=== PATIENT | male | born 1970 | race Caucasian/White ===

== ENCOUNTER 2020-03-13 17:45 | Inpatient (IN) ==
[2020-03-13] MEDS ORDERED: ONDANSETRON INJ 2 MG/ML 2 ML VIAL IV STA (18:34)
--- NOTE | 2020-03-13 18:39 | Emergency Department Note ---
History of Present Illness General Chief complaint: Syncope Stated complaint: SYNCOPE Time Seen by Provider: 03/13/20 18:25 Source: patient History of Present Illness Provider complaint: Syncope Onset (ago): minute(s) Location: head Severity: moderate Pain Consistency: + now resolved Maximum Pain Intensity: 0 Quality: + other (Loss of consciousness) Exacerbated By: + none Associated symptoms: + syncope; no chest pain, no cough, no fever/chills, no headaches, no nausea/vomiting and no shortness of breath This is a 50-year-old male who presents with a syncopal episode. Earlier this afternoon he had a prostate biopsy with local anesthesia. He did not receive any medication otherwise. His was driving him home when he started to feel some pressure in his bladder and nauseated. He then passed out for approximately 4 minutes. No report of seizure-like activity or cyanosis. When he woke up he was extremely sweaty and nauseated. He did not vomit. He denies having any chest discomfort or pain, fever, cough or cold symptoms, abdominal pain, leg swelling or pain, palpitations, diarrhea, black or bloody stools. He has nausea and a little bit of discomfort where he had the biopsy but otherwise feels well at this time. He has never passed out before. He states that the paramedics noted that his heart rate was in the 40s and he was given medication for this. He was given atropine 0.5 mg per the nursing note. Home Medications Medication Instructions Recorded Confirmed Type alfuzosin 10 mg PO HS 03/13/20 03/13/20 History ciprofloxacin HCl [Cipro] 500 mg PO Q12 03/13/20 03/13/20 History omeprazole 20 mg PO DAILY 03/13/20 03/13/20 History Allergies Allergy/AdvReac Type Severity Reaction Status Date / Time No Known Allergies Allergy Unverified 03/13/20 19:51 Past Med/Surg History Medical History No pertinent past medical history Social History Smoking Status: Never smoker Preferred Language: Ecuadorean Feels Safe at Home: Yes Review of Systems See HPI for pertinent positives & negatives. and A total of 10 systems reviewed and were otherwise negative Physical Exam Vital Signs Vital Signs - 24 hr 03/13/20 17:45 03/13/20 19:26 03/13/20 20:23 Temperature 36.5 C Temperature Source Oral Pulse Rate - Lying 55 L Pulse Rate - Sitting 58 L Pulse Rate - Standing 62 Pulse Rate 56 L Pulse Rate [Apical] Pulse Rhythm Regular Pulse Rhythm [Apical] Pulse Strength Normal Respiratory Rate 20 Respiratory Effort / Characteristics Non-Labored Spontaneous Respiratory Depth Normal Respiratory Pattern Regular Blood Pressure - Lying 122/79 Blood Pressure - Sitting 124/75 Blood Pressure- Standing 128/72 Blood Pressure 115/63 Blood Pressure [Right Arm] Blood Pressure Mean 80 Blood Pressure Mean [Right Arm] Blood Pressure Position Lying Pulse Oximetry 99 95 Oxygen Delivery Method Room Air Room Air Sepsis Recent Fever Within 48 Hours No Sepsis New/Unexplained Change in Mental Status N/A Sepsis Action Taken by Nursing No Action Required 03/13/20 20:37 03/13/20 21:46 03/13/20 21:54 Temperature Temperature Source Pulse Rate - Lying Pulse Rate - Sitting Pulse Rate - Standing Pulse Rate 52 L Pulse Rate [Apical] 51 L 52 L Pulse Rhythm Pulse Rhythm [Apical] Regular Regular Pulse Strength Respiratory Rate 14 16 14 Respiratory Effort / Characteristics Non-Labored Spontaneous Non-Labored Spontaneous Respiratory Depth Normal Normal Respiratory Pattern Blood Pressure - Lying Blood Pressure - Sitting Blood Pressure- Standing Blood Pressure Blood Pressure [Right Arm] 123/73 122/77 Blood Pressure Mean Blood Pressure Mean [Right Arm] 89 92 Blood Pressure Position Pulse Oximetry 98 98 Oxygen Delivery Method Room Air Room Air Sepsis Recent Fever Within 48 Hours Sepsis New/Unexplained Change in Mental Status Sepsis Action Taken by Nursing Constitutional: Vital signs reviewed. Eyes: Pupils are equal round reactive to light. Conjunctiva are noninjected. ENT: Pharynx is clear without erythema or exudate. Mucous membranes are moist. Neck supple without meningeal signs. Respiratory: Clear to auscultation bilaterally. Breath sounds are equal bilaterally. Cardiovascular: Regular rate and rhythm. No rubs or gallops. GI: Soft, nondistended and nontender. Bowel sounds are present. Musculoskeletal: No peripheral edema. No lower extremity tenderness. Integumentary: No cyanosis. or jaundice. Neurologic: The patient is awake and alert. Cranial nerves II-XII are intact. Motor is 5 out of 5 all extremities. Sensation is intact to light touch all extremities. Normal speech. No pronator drift. No limb ataxia. Psychiatric: Normal affect. Not anxious appearing. Course Administered Medications Lactated Ringer's (Lr) 1,000 mls @ 200 mls/hr IV .Q5H ONE Stop: 03/14/20 01:14 Last Admin: 03/13/20 20:35 Dose: 200 mls/hr Documented by: [id number] Discontinued Medications Ciprofloxacin (Ciprofloxacin 500 Mg Tab) 500 mg PO NOW STA Stop: 03/13/20 21:05 Last Admin: 03/13/20 21:15 Dose: 500 mg Documented by: [id number] Ondansetron HCl (Ondansetron Inj 2 Mg/Ml 2 Ml Vial) 4 mg IV NOW STA Stop: 03/13/20 18:35 Last Admin: 03/13/20 19:25 Dose: 4 mg Documented by: [id number] Medical Decision Making Differential Diagnosis Syncope, bradycardia, dysrhythmia, vasovagal syncope, anemia Medical Records Attestation: I reviewed the patient's medical records. I did perform a limited focused review of portions of the patient's old chart on the electronic medical record. The patient has had no prior visits to this hospital. Home Medications Current Medication List: was personally reviewed by me Laboratory Data Attestation: I reviewed the patient's lab results. Result diagrams: 03/13/20 17:40 03/13/20 17:40 Lab Results 03/13/20 03/13/20 03/13/20 Range/Units 17:40 17:40 17:40 WBC 10.90 H (4.8-10.8) K/uL RBC 5.00 (4.7-6.1) M/uL Hgb 15.5 (14.0-18.0) g/dL Hct 46.5 (42-52) % MCV 93.0 (80-100) fL MCH 31.0 (25-34) pg MCHC 33.3 (32-36) g/dL RDW Std Deviation 43.2 (36.4-46.3) fL RDW Coeff of Barak 12.7 (11.5-14.5) % Plt Count 205 (130-400) K/uL MPV 12.1 H (7.4-10.4) fL Immature Gran % (Auto) 0.2 % Neut % (Auto) 71.3 % Lymph % (Auto) 22.0 % [place] % (Auto) 5.6 % Eos % (Auto) 0.6 % Baso % (Auto) 0.3 % Neut # (Auto) 7.78 H (1.4-6.5) K/uL Lymph # (Auto) 2.40 (1.2-3.4) K/uL [place] # (Auto) 0.61 H (0.11-0.59) K/uL Eos # (Auto) 0.06 (0-0.5) K/uL Baso # (Auto) 0.03 (0-0.2) K/uL Immature Gran # (Auto) 0.02 (0.00-0.02) K/uL Sodium 138 (136-145) mmol/L Potassium 3.9 (3.5-5.1) mmol/L Chloride 104 (98-107) mmol/L Carbon Dioxide 29 (21-32) mmol/L Anion Gap 5.0 (3-11) BUN 18 (7-18) mg/dl Creatinine 1.25 (0.6-1.4) mg/dl Est Cr Clr Drug Dosing 82.7 ml/min Est GFR ( Amer) 76.2 Est GFR (Non-Af Amer) 65.8 BUN/Creatinine Ratio 14.5 (10-20) Glucose 131 H (70-99) mg/dl Calcium 9.1 (8.5-10.1) mg/dl Magnesium 2.3 (1.8-2.4) mg/dl Total Bilirubin 0.6 (0.2-1) mg/dl AST 18 (15-37) U/L ALT 25 (12-78) U/L Alkaline Phosphatase 58 (45-117) U/L Troponin I < 0.015 (0-0.045) ng/ml Total Protein 7.9 (6.4-8.2) gm/dl Albumin 4.3 (3.4-5.0) gm/dl Globulin 3.6 (2.5-4.0) gm/dl Albumin/Globulin Ratio 1.2 (0.9-2) TSH 3.070 (0.300-4.500) uIu/ml Lyme Disease IgG Ab Negative (Negative) Lyme Disease IgM Ab Positive A (Negative) SARS-CoV-2 Ag (Rapid) (Negative) 03/13/20 Range/Units 20:37 WBC (4.8-10.8) K/uL RBC (4.7-6.1) M/uL Hgb (14.0-18.0) g/dL Hct (42-52) % MCV (80-100) fL MCH (25-34) pg MCHC (32-36) g/dL RDW Std Deviation (36.4-46.3) fL RDW Coeff of Barak (11.5-14.5) % Plt Count (130-400) K/uL MPV (7.4-10.4) fL Immature Gran % (Auto) % Neut % (Auto) % Lymph % (Auto) % [place] % (Auto) % Eos % (Auto) % Baso % (Auto) % Neut # (Auto) (1.4-6.5) K/uL Lymph # (Auto) (1.2-3.4) K/uL [place] # (Auto) (0.11-0.59) K/uL Eos # (Auto) (0-0.5) K/uL Baso # (Auto) (0-0.2) K/uL Immature Gran # (Auto) (0.00-0.02) K/uL Sodium (136-145) mmol/L Potassium (3.5-5.1) mmol/L Chloride (98-107) mmol/L Carbon Dioxide (21-32) mmol/L Anion Gap (3-11) BUN (7-18) mg/dl Creatinine (0.6-1.4) mg/dl Est Cr Clr Drug Dosing ml/min Est GFR ( Amer) Est GFR (Non-Af Amer) BUN/Creatinine Ratio (10-20) Glucose (70-99) mg/dl Calcium (8.5-10.1) mg/dl Magnesium (1.8-2.4) mg/dl Total Bilirubin (0.2-1) mg/dl AST (15-37) U/L ALT (12-78) U/L Alkaline Phosphatase (45-117) U/L Troponin I (0-0.045) ng/ml Total Protein (6.4-8.2) gm/dl Albumin (3.4-5.0) gm/dl Globulin (2.5-4.0) gm/dl Albumin/Globulin Ratio (0.9-2) TSH (0.300-4.500) uIu/ml Lyme Disease IgG Ab (Negative) Lyme Disease IgM Ab (Negative) SARS-CoV-2 Ag (Rapid) Negative (Negative) Imaging Data Radiologist's Impression: XR chest 1V portable HISTORY: syncope COMPARISON: None. FINDINGS: Cardiac silhouette is borderline enlarged. The lungs are clear. No pleural effusions. No pneumothorax. Old posttraumatic changes within the distal left clavicle. IMPRESSION: Borderline cardiomegaly. Otherwise, no acute process within the chest. ACT 112: Negative or not required by law. Electronically signed by: Nguyễn Hollingsworth M.D. 03/13/2020 7:36 PM ECG Data Attestation: I personally reviewed and interpreted this ECG as follows: Indication: + syncope Rate (beats per minute): 48 Rhythm: + sinus bradycardia ECG ST segments: + ST elevation (Anterior laterally resembling early repolarization) ECG Findings: + Peaked T waves; no PVCs MDM Narrative I did evaluate the patient as noted above. The patient is presenting with a syncopal episode. His reported that it was 4 minutes. EMS reported bradycardia in the 40s and gave him atropine IV. Currently he is nauseated but has no other symptoms. I did place an order for continuous cardiac monitoring. The monitor showed normal sinus rhythm at a rate of 60 bpm. He was given Zofran IV. I did order and personally review the patient's 12-lead EKG as described above. He has what appears to be early repolarization in the anterior lateral leads with peak T waves as well. There is no old EKG to compare this was on the [employer] system or on the [employer] system. He denies having any chest discomfort or pain or shortness of breath. I did order and personally reviewed the images of the patient's chest x-ray as described above. Chest x-ray is unremarkable. I did order and review the patient's blood work as noted in the electronic medical record. His white blood cell count is slightly elevated which is a nonspecific finding. He is not anemic. His troponin is negative. TSH and electrolytes and LFTs are all within normal limits. I did discuss the test results with the jagdish duron. He remains bradycardic in the 50s here. I did recommend hospitalization for further care and evaluation. I did discuss the case with hospitalist and behavioral health case manager. Impression & Plan Syncope, Bradycardia, Abnormal ECG Discharge Plan Visit Data Chief Complaint: Syncope Stated Complaint: SYNCOPE ED Provider: [facility] Discharge Problem: Syncope, Bradycardia, Abnormal ECG Patient Disposition: Being Evaluated by Hospitalist Discharge Instructions Interventions: ED Discharge Assessment Last Done: 03/13/20 21:54 Forms Stand Alone Forms: [facility] Prescriptions Prescriptions: No Action ciprofloxacin HCl [Cipro] 500 mg tablet 500 mg PO Q12 RF: 0 omeprazole 20 mg capsule,delayed release(DR/EC) 20 mg PO DAILY RF: 0 alfuzosin 10 mg Tablet Extended Release 24 Hr 10 mg PO HS RF: 0 Referrals Referrals: Chano Boudreaux MD [Primary Care Provider] - Discharge Problem: Syncope Qualifiers: Syncope type: unspecified Qualified Code(s): R55 - Syncope and collapse
[2020-03-13 18:43] LABS: Basophils # (auto) 0.03 K/uL (0-0.2); Basophils % (auto) 0.3 %; Eosinophils # (auto) 0.06 K/uL (0-0.5); Eosinophils % (auto) 0.6 %; Hematocrit (blood only) 46.5 % (42-52); Hemoglobin 15.5 g/dL (14.0-18.0); Immature Granulocytes # (auto) 0.02 K/uL (0.00-0.02); Immature Granulocytes % (auto) 0.2 %; Mean Corpuscular Hgb Conc 33.3 g/dL (32-36); Mean Platelet Volume 12.1 fL (7.4-10.4); Monocytes # (auto) 0.61 K/uL (0.11-0.59); Monocytes % (auto) 5.6 %; Neutrophils # (auto) 7.78 K/uL (1.4-6.5); Neutrophils % (auto) 71.3 %; Platelet Count 205 K/uL (130-400); RDW Coefficient of Variation 12.7 % (11.5-14.5); RDW Standard Deviation 43.2 fL (36.4-46.3)
[2020-03-13 18:52] LABS: Alanine Aminotransferase 25 U/L (12-78); Albumin Level 4.3 gm/dl (3.4-5.0); Aspartate Aminotransferase 18 U/L (15-37); BUN Creatinine Ratio 14.5 (10-20); Blood Urea Nitrogen 18 mg/dl (7-18); Calcium 9.1 mg/dl (8.5-10.1); Carbon Dioxide 29 mmol/L (21-32); Chloride 104 mmol/L (98-107); Creatinine Clr Calc Pharmacy 82.7 ml/min; Est GFR (African American) 76.2; Est GFR (Non-African American) 65.8; Glucose 131 mg/dl (70-99); Magnesium 2.3 mg/dl (1.8-2.4); Potassium 3.9 mmol/L (3.5-5.1); Sodium 138 mmol/L (136-145)
[2020-03-13 19:03] LABS: Albumin Globulin Ratio 1.2 (0.9-2); Alkaline Phosphatase 58 U/L (45-117); Bilirubin,Total 0.6 mg/dl (0.2-1); Globulin 3.6 gm/dl (2.5-4.0); Total Protein 7.9 gm/dl (6.4-8.2); Troponin I < 0.015 ng/ml (0-0.045)
--- NOTE | 2020-03-13 19:37 | XRay Report ---
XR chest 1V portable HISTORY: syncope COMPARISON: None. FINDINGS: Cardiac silhouette is borderline enlarged. The lungs are clear. No pleural effusions. No pn eumothorax. Old posttraumatic changes within the distal left clavicle. IMPRESSION: Borderline cardiomegaly. Otherwise, no acute process within the chest. ACT 112: Negative or not required by law. Electronically signed by: Nguyễn Hollingsworth M.D. 03/13/2020 7:36 PM
[2020-03-13] MEDS ORDERED: LACTATED RINGER'S 1,000 ML IV ONE (20:15)
--- NOTE | 2020-03-13 21:01 | History & Physical Report ---
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 Hyperglycemia rule out DM PCU IV Ceftriaxone [facility] ID consult in a.m. RE Lyme carditis TTE RE syncope Atropine as needed symptomatic bradycardia Check hemoglobin A1c DVT prophylaxis. SCDs Full code Text document was generated using [employer] voice recognition software. It may contain grammatical or spelling errors. Kindly contact undersigned for clarification of any documentation item in question. History of Present Illness Chief Complaint: Syncope, bradycardia Primary Care Provider: Chano Boudreaux MD History obtained from patient and records. Medical history significant for GERD, prostate enlargement as per records. Last week, patient noted a tick attached to his right posterior leg while showering. No fever, no chills, no chest pain, no shortness of breath, no headache over the weekend. Patient underwent outpatient transrectal ultrasound and prostate biopsy at [facility] this afternoon for history of elevated PSA and urinary retention. Prostate noted to be enlarged on TRUS. Subsequent prostatic needle biopsy done. Post procedure patient prescribed alpha-margaux trial by urologist. He was also instructed to complete 3-day periprocedural Cipro course. Patient noted worsening bladder pressure and nausea symptoms inside moving vehicle being driven by patient's on the way home to [place] from [facility]. Syncopal event lasting about 4 minutes as per 's account. No witnessed seizures. No chest pain, no S OB, no headache symptoms as per patient. When he woke up patient felt very nauseous, lightheaded, and very sweaty. Upon EMS arrival, patient heart rate noted to be 40s. IV atropine given by EMS. Patient started feeling better. Patient brought to the ER for evaluation. 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 Allergies Allergy/AdvReac Type Severity Reaction Status Date / Time No Known Allergies Allergy Unverified 03/13/20 19:51 Home Medications Medication Instructions Recorded Confirmed Type alfuzosin 10 mg PO HS 03/13/20 03/13/20 History ciprofloxacin HCl [Cipro] 500 mg PO Q12 03/13/20 03/13/20 History omeprazole 20 mg PO DAILY 03/13/20 03/13/20 History Past Med/Surg History Medical History No pertinent past medical history Social History Smoking Status: Unknown if ever smoked Hx Alcohol Use: No Hx Substance Use: No Preferred Language: Moroccan Communication Ability: Effective Service Observer Required: No Beliefs That Will Affect Care: None Current Living Situation: Spouse Other Information That Helps Us Care for You: No Feels Safe at Home: Yes Safety Concerns: Feels Safe At This Time Assistive Devices: None Review of Systems Review of Systems: As per HPI, all 10 systems reviewed, all other ROS negative Physical Exam Physical Exam: GENERAL: Comfortable, pleasant, no respiratory distress SKIN: Normal color, warm HEENT: [place] palpebral conjunctivae, no ptosis, dry buccal mucosa NECK : Supple, no tenderness CHEST : CTA, no tenderness HEART : Bradycardic, no obvious murmurs ABDOMEN: Some distention, nontender EXTREMITIES : papule, R superior calf, no tenderness, no other conspicuous deformities noted NEUROLOGIC : Coherent, no facial asymmetry, no other gross focality Results & Data Results & Data ([facility]) Vital Signs (Past 12 Hours) Vital Signs Temp Pulse Pulse Resp BP BP Pulse Ox 03/13/20 20:37 51 L 14 123/73 98 03/13/20 20:23 95 03/13/20 17:45 36.5 C 56 L 20 115/63 99 Laboratory Results Laboratory Results WBC 10.90 K/uL (4.8-10.8) H 03/13/20 17:40 RBC 5.00 M/uL (4.7-6.1) 03/13/20 17:40 Hgb 15.5 g/dL (14.0-18.0) 03/13/20 17:40 Hct 46.5 % (42-52) 03/13/20 17:40 MCV 93.0 fL (80-100) 03/13/20 17:40 MCH 31.0 pg (25-34) 03/13/20 17:40 MCHC 33.3 g/dL (32-36) 03/13/20 17:40 RDW Std Deviation 43.2 fL (36.4-46.3) 03/13/20 17:40 RDW Coeff of Barak 12.7 % (11.5-14.5) 03/13/20 17:40 Plt Count 205 K/uL (130-400) 03/13/20 17:40 MPV 12.1 fL (7.4-10.4) H 03/13/20 17:40 Immature Gran % (Auto) 0.2 % 03/13/20 17:40 Neut % (Auto) 71.3 % 03/13/20 17:40 Lymph % (Auto) 22.0 % 03/13/20 17:40 [place] % (Auto) 5.6 % 03/13/20 17:40 Eos % (Auto) 0.6 % 03/13/20 17:40 Baso % (Auto) 0.3 % 03/13/20 17:40 Neut # (Auto) 7.78 K/uL (1.4-6.5) H 03/13/20 17:40 Lymph # (Auto) 2.40 K/uL (1.2-3.4) 03/13/20 17:40 [place] # (Auto) 0.61 K/uL (0.11-0.59) H 03/13/20 17:40 Eos # (Auto) 0.06 K/uL (0-0.5) 03/13/20 17:40 Baso # (Auto) 0.03 K/uL (0-0.2) 03/13/20 17:40 Immature Gran # (Auto) 0.02 K/uL (0.00-0.02) 03/13/20 17:40 Sodium 138 mmol/L (136-145) 03/13/20 17:40 Potassium 3.9 mmol/L (3.5-5.1) 03/13/20 17:40 Chloride 104 mmol/L (98-107) 03/13/20 17:40 Carbon Dioxide 29 mmol/L (21-32) 03/13/20 17:40 Anion Gap 5.0 (3-11) 03/13/20 17:40 BUN 18 mg/dl (7-18) 03/13/20 17:40 Creatinine 1.25 mg/dl (0.6-1.4) 03/13/20 17:40 Est Cr Clr Drug Dosing 82.7 ml/min 03/13/20 17:40 Est GFR ( Amer) 76.2 03/13/20 17:40 Est GFR (Non-Af Amer) 65.8 03/13/20 17:40 BUN/Creatinine Ratio 14.5 (10-20) 03/13/20 17:40 Glucose 131 mg/dl (70-99) H 03/13/20 17:40 Calcium 9.1 mg/dl (8.5-10.1) 03/13/20 17:40 Magnesium 2.3 mg/dl (1.8-2.4) 03/13/20 17:40 Total Bilirubin 0.6 mg/dl (0.2-1) 03/13/20 17:40 AST 18 U/L (15-37) 03/13/20 17:40 ALT 25 U/L (12-78) 03/13/20 17:40 Alkaline Phosphatase 58 U/L (45-117) 03/13/20 17:40 Troponin I < 0.015 ng/ml (0-0.045) 03/13/20 17:40 Total Protein 7.9 gm/dl (6.4-8.2) 03/13/20 17:40 Albumin 4.3 gm/dl (3.4-5.0) 03/13/20 17:40 Globulin 3.6 gm/dl (2.5-4.0) 03/13/20 17:40 Albumin/Globulin Ratio 1.2 (0.9-2) 03/13/20 17:40 TSH 3.070 uIu/ml (0.300-4.500) 03/13/20 17:40 SARS-CoV-2 Ag (Rapid) Negative (Negative) 03/13/20 20:37 Lab Results 03/13/20 03/13/20 03/13/20 Range/Units 17:40 17:40 17:40 WBC 10.90 H (4.8-10.8) K/uL RBC 5.00 (4.7-6.1) M/uL Hgb 15.5 (14.0-18.0) g/dL Hct 46.5 (42-52) % MCV 93.0 (80-100) fL MCH 31.0 (25-34) pg MCHC 33.3 (32-36) g/dL RDW Std Deviation 43.2 (36.4-46.3) fL RDW Coeff of Barak 12.7 (11.5-14.5) % Plt Count 205 (130-400) K/uL MPV 12.1 H (7.4-10.4) fL Immature Gran % (Auto) 0.2 % Neut % (Auto) 71.3 % Lymph % (Auto) 22.0 % [place] % (Auto) 5.6 % Eos % (Auto) 0.6 % Baso % (Auto) 0.3 % Neut # (Auto) 7.78 H (1.4-6.5) K/uL Lymph # (Auto) 2.40 (1.2-3.4) K/uL [place] # (Auto) 0.61 H (0.11-0.59) K/uL Eos # (Auto) 0.06 (0-0.5) K/uL Baso # (Auto) 0.03 (0-0.2) K/uL Immature Gran # (Auto) 0.02 (0.00-0.02) K/uL Sodium 138 (136-145) mmol/L Potassium 3.9 (3.5-5.1) mmol/L Chloride 104 (98-107) mmol/L Carbon Dioxide 29 (21-32) mmol/L Anion Gap 5.0 (3-11) BUN 18 (7-18) mg/dl Creatinine 1.25 (0.6-1.4) mg/dl Est Cr Clr Drug Dosing 82.7 ml/min Est GFR ( Amer) 76.2 Est GFR (Non-Af Amer) 65.8 BUN/Creatinine Ratio 14.5 (10-20) Glucose 131 H (70-99) mg/dl Calcium 9.1 (8.5-10.1) mg/dl Magnesium 2.3 (1.8-2.4) mg/dl Total Bilirubin 0.6 (0.2-1) mg/dl AST 18 (15-37) U/L ALT 25 (12-78) U/L Alkaline Phosphatase 58 (45-117) U/L Troponin I < 0.015 (0-0.045) ng/ml Total Protein 7.9 (6.4-8.2) gm/dl Albumin 4.3 (3.4-5.0) gm/dl Globulin 3.6 (2.5-4.0) gm/dl Albumin/Globulin Ratio 1.2 (0.9-2) TSH 3.070 (0.300-4.500) uIu/ml Lyme Disease IgG Ab Negative (Negative) Lyme Disease IgM Ab Positive A (Negative) SARS-CoV-2 Ag (Rapid) (Negative) 03/13/20 Range/Units 20:37 WBC (4.8-10.8) K/uL RBC (4.7-6.1) M/uL Hgb (14.0-18.0) g/dL Hct (42-52) % MCV (80-100) fL MCH (25-34) pg MCHC (32-36) g/dL RDW Std Deviation (36.4-46.3) fL RDW Coeff of Barak (11.5-14.5) % Plt Count (130-400) K/uL MPV (7.4-10.4) fL Immature Gran % (Auto) % Neut % (Auto) % Lymph % (Auto) % [place] % (Auto) % Eos % (Auto) % Baso % (Auto) % Neut # (Auto) (1.4-6.5) K/uL Lymph # (Auto) (1.2-3.4) K/uL [place] # (Auto) (0.11-0.59) K/uL Eos # (Auto) (0-0.5) K/uL Baso # (Auto) (0-0.2) K/uL Immature Gran # (Auto) (0.00-0.02) K/uL Sodium (136-145) mmol/L Potassium (3.5-5.1) mmol/L Chloride (98-107) mmol/L Carbon Dioxide (21-32) mmol/L Anion Gap (3-11) BUN (7-18) mg/dl Creatinine (0.6-1.4) mg/dl Est Cr Clr Drug Dosing ml/min Est GFR ( Amer) Est GFR (Non-Af Amer) BUN/Creatinine Ratio (10-20) Glucose (70-99) mg/dl Calcium (8.5-10.1) mg/dl Magnesium (1.8-2.4) mg/dl Total Bilirubin (0.2-1) mg/dl AST (15-37) U/L ALT (12-78) U/L Alkaline Phosphatase (45-117) U/L Troponin I (0-0.045) ng/ml Total Protein (6.4-8.2) gm/dl Albumin (3.4-5.0) gm/dl Globulin (2.5-4.0) gm/dl Albumin/Globulin Ratio (0.9-2) TSH (0.300-4.500) uIu/ml Lyme Disease IgG Ab (Negative) Lyme Disease IgM Ab (Negative) SARS-CoV-2 Ag (Rapid) Negative (Negative) Diagnostic Findings Chest x-ray : Borderline cardiomegaly. Otherwise, no acute process within the chest. EKG as per my interpretation : Rate 50, sinus bradycardia, normal axis, early repolarization
[2020-03-13] MEDS ORDERED: CIPROFLOXACIN 500 MG TAB PO STA (21:04)
[2020-03-13 21:29] LABS: Lyme Ab IgG w/WB Rflx Negative (Negative)
[2020-03-13 21:32] LABS: Lyme Ab IgM w/WB Rflx Positive (Negative)
[2020-03-13] MEDS ORDERED: KETOROLAC TROMETHAMINE 15 MG/ML VIAL IV PRN (22:31)
[2020-03-13] MEDS ORDERED: IBUPROFEN 200 MG TAB PO PRN (22:31)
[2020-03-13] MEDS ORDERED: PROMETHAZINE HCL 12.5 MG in SODIUM CHLORIDE 0.9% 50 ML IV PRN (22:31)
[2020-03-13] MEDS ORDERED: ATROPINE SULFATE 0.1 MG/ML 5ML SYR IV PRN (22:31)
[2020-03-13] MEDS ORDERED: LORazepam 0.25 MG/0.5 ML VIAL IV PRN (22:31)
[2020-03-13] MEDS ORDERED: cefTRIAXone SODIUM 2,000 MG in DEXTROSE 5% 50 ML IV SCH (23:00)
[2020-03-14 04:56] LABS: Appearance Urine Clear (Clear); Bacteria Urine Automated Negative (Negative); Bilirubin Urine Negative (Negative); Blood Urine 3+ (Negative); Cast Urine Automated 0 /lpf (0-5); Color Urine Yellow; Epithelial Cell Urine Auto 0-5 /lpf (0-5); Glucose Urine UA Negative (Negative); Ketones Urine Negative (Negative); Leukocyte Esterase Urine Negative (Negative); Nitrite Urine Negative (Negative); Protein Urine Negative (Negative); RBC Urine Automated >30 /hpf (0-4); Specific Gravity Urine 1.014 (1.000-1.030); Urobilinogen Urine Negative (Negative)
[2020-03-14 06:13] LABS: Estimated Average Glucose 97 mg/dl
[2020-03-14] MEDS ORDERED: CIPROFLOXACIN 500 MG TAB PO SCH (09:00)
[2020-03-14] MEDS ORDERED: PANTOprazole 40 MG TAB PO SCH (09:00)
--- NOTE | 2020-03-14 09:57 | Electrocardiogram Report ---
Test Reason : Blood Pressure : / mmHG Vent. Rate : 048 BPM Atrial Rate : 048 BPM P-R Int : 164 ms QRS Dur : 092 ms QT Int : 438 ms P-R-T Axes : 043 049 027 degrees QTc Int : [address] elevation, consider early repolarization Borderline ECG No previous ECGs available Confirmed by Valerio Fischer [id number]) on 03/14/2020 9:57:17 AM Referred By: REFERRED SELF Confirmed By:Valerio Fischer
[2020-03-14 10:32] LABS: Basophils # (auto) 0.02 K/uL (0-0.2); Basophils % (auto) 0.3 %; Eosinophils # (auto) 0.03 K/uL (0-0.5); Eosinophils % (auto) 0.4 %; Hematocrit (blood only) 42.6 % (42-52); Hemoglobin 14.4 g/dL (14.0-18.0); Immature Granulocytes # (auto) 0.02 K/uL (0.00-0.02); Immature Granulocytes % (auto) 0.3 %; Lymphocytes # (auto) 1.58 K/uL (1.2-3.4); Lymphocytes % (auto) 20.6 %; Mean Corpuscular Hemoglobin 31.2 pg (25-34); Mean Corpuscular Hgb Conc 33.8 g/dL (32-36); Mean Corpuscular Volume 92.4 fL (80-100); Mean Platelet Volume 11.2 fL (7.4-10.4); Monocytes # (auto) 0.42 K/uL (0.11-0.59); Monocytes % (auto) 5.5 %; Neutrophils # (auto) 5.61 K/uL (1.4-6.5); Neutrophils % (auto) 72.9 %; Platelet Count 173 K/uL (130-400); RDW Coefficient of Variation 12.6 % (11.5-14.5); RDW Standard Deviation 42.7 fL (36.4-46.3); Red Blood Count 4.61 M/uL (4.7-6.1); White Blood Count 7.68 K/uL (4.8-10.8)
[2020-03-14 11:16] LABS: BUN Creatinine Ratio 13.7 (10-20); Blood Urea Nitrogen 14 mg/dl (7-18); C Reactive Protein < 0.29 mg/dl (0-0.29); Carbon Dioxide 27 mmol/L (21-32); Chloride 109 mmol/L (98-107); Creatinine Clr Calc Pharmacy 100.3 ml/min; Est GFR (African American) 97.5; Est GFR (Non-African American) 84.1; Glucose 100 mg/dl (70-99); Potassium 3.7 mmol/L (3.5-5.1); Sodium 140 mmol/L (136-145)
--- NOTE | 2020-03-14 13:03 | Electrocardiogram Report ---
Test Reason : Blood Pressure : / mmHG Vent. Rate : 058 BPM Atrial Rate : 058 BPM P-R Int : 174 ms QRS Dur : 080 ms QT Int : 412 ms P-R-T Axes : 053 046 028 degrees QTc Int : 404 ms Sinus bradycardia Early repolarization Otherwise normal ECG When compared with ECG of 13-MAR-2020 19:47, No significant change was found Confirmed by Valerio Fischer [id number] on 03/14/2020 1:03:08 PM Referred By: REFERRED SELF Confirmed By:Valerio Fischer
--- NOTE | 2020-03-14 15:52 | Cardiology Consultation ---
Date of Consultation March 14, 2020 Assessment & Plan (1) Syncope: Given the patient's history of prostate biopsy, and pelvic pressure leading up to his event, I think this was likely vasovagal syncope. I would speculate, that his baseline heart rate is about 50. There is no evidence of high-grade AV block today on telemetry, and his MD interval is normal. (2) Bradycardia: Typically Lyme carditis would be associated with atrioventricular block, no evidence of AV block on telemetry, MD interval normal. Currently, sinus bradycardia at 49 bpm noted while he was lying supine in bed, and he looks like a very physically fit 50-year-old man. I believe his EKG is consistent with early repolarization, he has a thin body habitus, and this is likely a normal variant for him. (3) Tick bite: Recent tick bite. Lyme serologies obtained, and his IgM antibody is positive, IgG antibody is negative. He notes recent tick bite. I think this is likely an incidental finding unrelated to a syncopal event. I believe however it does warrant treatment. A confirmatory Western blot is in process, called the lab, today is Tuesday, the environmental health technician informed me that the Western blot test will not come back until Tuesday or Tuesday. I would therefore recommend empiric antibiotic therapy pending results. He is currently on ceftriaxone for both urinary prophylaxis and Lyme while hospitalized. He will likely need to complete a course of doxycycline from the tick bite/Lyme standpoint, and to complete his previously recommended course of ciprofloxacin from a prostate standpoint. Case discussed with Dr. Edwards. History of Present Illness Attending Physician: Aria Edwards, DO History of Present Illness Mr Perez is a 50-year-old male seen in cardiology consultation per the request of Dr. Edwards for the evaluation of syncope and bradycardia. The patient describes himself as being physically active. He mountain bikes regularly. He denies any past cardiac history. Yesterday, he had a prostate biopsy performed at [facility]. His spouse was driving him home from the procedure, and he was sitting in the passenger seat. He felt pressure in his pelvic area as if he needed to move his bowels or urinate, he felt uncomfortable, with progressive heavy perspiration. His then reports that he lost consciousness. She pulled over to the side of the road and he was unconscious for about 4 minutes. She called EMS. When he woke up, he noted that he was covered in heavy perspiration. He notes no past syncope or near syncope episodes. He feels well now. Upon arrival to the emergency room sinus bradycardia in the low 40 bpm range was noted. On telemetry, the lowest heart rate I found was sinus bradycardia at 39 bpm at 12:24 AM. At present, he is resting comfortably in bed, with sinus bradycardia at 49 bpm present. Also, 2 days ago he describes having removed a tick from the medial aspect of his right lower leg. He believes that this was embedded, and it may have resulted from a mountain biking session about a week ago on Tuesday or Tuesday. He noted transient subjective chills last night, no recent rash or fevers at home. He did have an insect bite at the medial aspect of his left knee over the summer for which he received 2 courses of antibiotics. Family History: The patient's father had a history of myocardial infarction in his 50s. He of cancer at age 72. Surgical History: Prostate biopsy 03/13/2020 Social History: Patient is and lives with his spouse Non-smoker Allergies Allergy/AdvReac Type Severity Reaction Status Date / Time No Known Allergies Allergy Unverified 03/13/20 19:51 Home Medications Medication Instructions Recorded Confirmed Type alfuzosin 10 mg PO HS 03/13/20 03/13/20 History ciprofloxacin HCl [Cipro] 500 mg PO Q12 03/13/20 03/13/20 History omeprazole 20 mg PO DAILY 03/13/20 03/13/20 History Patient History Medical History No pertinent past medical history Social History Smoking Status: Unknown if ever smoked Hx Alcohol Use: No Hx Substance Use: No Preferred Language: Albanian Communication Ability: Effective Mothers Helper Required: No Beliefs That Will Affect Care: None Current Living Situation: Spouse Other Information That Helps Us Care for You: No Feels Safe at Home: Yes Safety Concerns: Feels Safe At This Time Assistive Devices: None Review of Systems Review of Systems: All systems reviewed & are unremarkable except as noted in HPI & below Physical Exam Physical Exam: Temp Pulse Resp BP Pulse Ox 36.9 C 48 L 19 123/66 95 03/14/20 15:07 03/14/20 15:07 03/14/20 15:07 03/14/20 15:07 03/14/20 15:07 Constitutional: WD/WN, vitals as above Respiratory: normal respiratory effort, lungs clear to auscultation Cardiovascular: RRR, no murmur, no edema Gastrointestinal (Abdomen): normal bowel sounds, soft, nontender, no hepatosplenomegaly Neurologic: PERRL, EOMI, accommodation nl, no face palsy, no dysarthria Results & Data ([facility]) Vital Signs (Past 12 Hours) Vital Signs Temp Pulse Resp BP BP Pulse Ox 03/14/20 15:07 36.9 C 48 L 19 123/66 95 03/14/20 11:01 36.7 C 66 20 125/66 97 03/14/20 07:08 36 C L 82 20 115/70 97 03/14/20 03:56 37.2 C 51 L 18 111/59 L 95 Laboratory Results Cardiac Enzymes 03/13/20 Range/Units 17:40 AST 18 (15-37) U/L Troponin I < 0.015 (0-0.045) ng/ml CBC 03/13/20 03/14/20 Range/Units 17:40 10:11 WBC 10.90 H 7.68 (4.8-10.8) K/uL RBC 5.00 4.61 L (4.7-6.1) M/uL Hgb 15.5 14.4 (14.0-18.0) g/dL Hct 46.5 42.6 (42-52) % Plt Count 205 173 (130-400) K/uL Neut # (Auto) 7.78 H 5.61 (1.4-6.5) K/uL Lymph # (Auto) 2.40 1.58 (1.2-3.4) K/uL Winn # (Auto) 0.61 H 0.42 (0.11-0.59) K/uL Eos # (Auto) 0.06 0.03 (0-0.5) K/uL Baso # (Auto) 0.03 0.02 (0-0.2) K/uL Comprehensive Metabolic Panel 03/13/20 03/14/20 Range/Units 17:40 10:11 Sodium 138 140 (136-145) mmol/L Potassium 3.9 3.7 (3.5-5.1) mmol/L Chloride 104 109 H (98-107) mmol/L Carbon Dioxide 29 27 (21-32) mmol/L BUN 18 14 (7-18) mg/dl Creatinine 1.25 1.02 (0.6-1.4) mg/dl Glucose 131 H 100 H (70-99) mg/dl Calcium 9.1 9.0 (8.5-10.1) mg/dl AST 18 (15-37) U/L ALT 25 (12-78) U/L Alkaline Phosphatase 58 (45-117) U/L Total Protein 7.9 (6.4-8.2) gm/dl Albumin 4.3 (3.4-5.0) gm/dl Intake and Output 03/14/20 03/14/20 03/14/20 06:59 14:59 22:59 Intake Total 1220 / 1820 560 / 560 Output Total 1600 / 1600 Balance -380 / 220 560 / 560 Intake: IV 1070 / 1670 Lr 1,000 ml @ 200 mls/hr IV . 1000 / 1000 Q5H [facility] Rx#:[id number] Rocephin 2,000 mg In D5w 50 ml 70 / 70 @ 100 mls/hr IV Q24H [facility] Rx#: [id number] Oral 150 / 150 560 / 560 Output: Urine 1600 / 1600 Other: Weight 96.3 kg Weight Measurement Method Standing Scale Diagnostic Findings EKG performed on arrival 03/13/20201946 and reviewed independently revealed sinus bradycardia at 40 bpm, MD interval is normal at 164 ms, diffuse J-point elevation noted consistent with early repolarization. No prior EKG tracing is on file either at this institution or within the [facility] system per my review. Repeat EKG performed today at 12:06 PM sinus bradycardia 58 bpm, normal MD interval, 174 ms, diffuse J-point elevation consistent with early repolarization Echocardiogram performed today and reviewed independently by the undersigned revealed normal left ventricular myocardial thickness, normal wall motion, normal LVEF 55 to 60%, no significant valvular heart disease, no pericardial effusion (1) Syncope Syncope type: unspecified Qualified Code(s): R55 - Syncope and collapse
--- NOTE | 2020-03-14 17:13 | Discharge Summary ---
Date of Service March 14, 2020 Admission HPI Per Admitting Provider History obtained from patient and records. Medical history significant for GERD, prostate enlargement as per records. Last week, patient noted a tick attached to his right posterior leg while showering. No fever, no chills, no chest pain, no shortness of breath, no headache over the weekend. Patient underwent outpatient transrectal ultrasound and prostate biopsy at [facility] this afternoon for history of elevated PSA and urinary retention. Prostate noted to be enlarged on TRUS. Subsequent prostatic needle biopsy done. Post procedure patient prescribed alpha-margaux trial by urologist. He was also instructed to complete 3-day periprocedural Cipro course. Patient noted worsening bladder pressure and nausea symptoms inside moving vehicle being driven by patient's on the way home to [place] from [facility]. Syncopal event lasting about 4 minutes as per 's account. No witnessed seizures. No chest pain, no S OB, no headache symptoms as per patient. When he woke up patient felt very nauseous, lightheaded, and very sweaty. Upon EMS arrival, patient heart rate noted to be 40s. IV atropine given by EMS. Patient started feeling better. Patient brought to the ER for evaluation. 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 Admission Exam Per Admitting Provider GENERAL: Comfortable, pleasant, no respiratory distress SKIN: Normal color, warm HEENT: [place] palpebral conjunctivae, no ptosis, dry buccal mucosa NECK : Supple, no tenderness CHEST : CTA, no tenderness HEART : Bradycardic, no obvious murmurs ABDOMEN: Some distention, nontender EXTREMITIES : papule, R superior calf, no tenderness, no other conspicuous deformities noted NEUROLOGIC : Coherent, no facial asymmetry, no other gross focality Principal Diagnosis Vasovagal syncope s/p prostate biopsy recent tick bite with possible Lyme infection Discharge Exam CONSTITUTIONAL: WNWD, vitals as above, generally well-appearing EYES: normal conjunctivae, no scleral icterus ENT: external ear and nose normal, MMM RESPIRATORY: clear to auscultation bilaterally, no crackles, rales or wheezes, normal respiratory effort CARDIOVASCULAR: regular rate and rhythm, S1 and 2 heard without murmurs, gallops or rubs, no JVD, no peripheral edema GASTROINTESTINAL: soft, nontender, nondistended, no guarding MUSCULOSKELETAL: strength 5/5 throughout, head is normocephalic and atraumatic SKIN: warm and dry, no rashes, small bite jaelyn behind right knee. NEUROLOGIC: No facial palsy. Touch, pain and proprioception normal. CN 2-12 grossly intact, no sensory deficit, normal cognition, normal speech, no tremor PSYCHIATRIC: alert cooperative and oriented to person, place and time. Discharge Data Allergies Allergy/AdvReac Type Severity Reaction Status Date / Time No Known Allergies Allergy Unverified 03/13/20 19:51 Consultations 03/13/20 19:57 ED Decision to Admit Stat 03/14/20 11:26 Consult Cardiology Routine Ordered Studies [facility], [id number] XRay Report Patient: WILDER GREENAdmit Date: 03/13/20MR#: [id number]: [address]Acct ID:[id number]: Date: 1970[facility] Zip: [place], [place] [address]Hmo: 50Location: EDSex: MRoom/Bed:Att Phy:Diagnosis: SYNCOPEPri Phy: Chano Boudreaux, MDService Date: 03/13/20Fa Phy:Interpreting Phy: Nguyễn Hollingsworth MDAdmit Phy: Ordering Phy: Good Coronel MD cc: ~ XR chest 1V portable HISTORY: syncope COMPARISON: None. FINDINGS: Cardiac silhouette is borderline enlarged. The lungs are clear. No pleural effusions. No pneumothorax. Old posttraumatic changes within the distal left clavicle. IMPRESSION: Borderline cardiomegaly. Otherwise, no acute process within the chest. ACT 112: Negative or not required by law. Electronically signed by: Nguyễn Hollingsworth M.D. 03/13/2020 7:36 PM Dictated: 03/13/201934Transcribed: 03/13/201934 Hospital Course (1) Syncope: (2) Bradycardia: (3) Tick bite: (4) History of prostate biopsy: Patient is a 50-year-old man with a history of elevated PSA and a family history of prostate cancer who underwent a prostate biopsy yesterday, on 03/13. On the way home he developed significant nausea, lightheadedness and pelvic pressure and subsequently had a syncopal episode. His pulled off the road and called 911 and paramedics found him bradycardic and administered atropine on the way to the hospital. He was admitted to the hospitalist service and placed on Rocephin when a Lyme panel was found to be positive for IgM with Lyme Western blot pending. Rocephin was started out of concern for Lyme carditis. Cardiology was consulted and did not feel the situation was consistent with a Lyme carditis as there was no evidence of high-grade AV block on telemetry and the [place] interval is normal. Historically the patient is athletic and is frequently outdoors with a recent tick bite last week. The area shows no evidence of erythema migrans, and the patient is asymptomatic from a Lyme standpoint. In the current setting, however, it is reasonable to treat him with a course of doxycycline. Additionally, given the pelvic pressure and symptoms leading up to the event of syncope this was likely vasovagal in nature. As the patient is athletic his baseline heart rate is likely low, and the patient corroborates this. At time of discharge she was hemodynamically stable and afebrile and tolerating p.o. He was oxygenating well on room air and mentating and ambulating at baseline. He was asymptomatic with all symptoms from yesterday having resolved and will be sent home on a 14-day course of doxycycline while awaiting further Western blot results as outpatient. Close primary care follow-up was recommended within 1 week to discuss results and ensure he is still doing well clinically. Of note an echocardiogram was performed while he was hospitalized and was within normal limits. Total Time Total Time Spent Total Time Spent (In Minutes): 60 Total Time Includes: Examination of the Patient, Discharge Planning, Medication Reconciliation, Communication With Other Providers and Other (contacted twice to explain results and plan) Discharge Plan Discharge Items Patient Disposition: Home - Self-Care Reason For Visit: SYMTOMATIC BRADYCARDIA Discharge Diagnosis: Vasovagal syncope s/p prostate biopsy recent tick bite with possible Lyme infection Activity: Resume your previous activity Non-emergency contact: Primary Care Provider Call non-emergency contact if: you have any medication questions, your symptoms worsen, your pain is not controlled, your pain is worsening, you have a fever, your wound has increased redness, your wound has increased drainage and your wound pain has increased Follow-up/Referrals: Chano Boudreaux MD [Primary Care Provider] - Diet: Regular Addtl Attending Provider Instructions: Please finish the ciprofloxacin given to you by Dr. Leyva Please start taking DOXYCYCLINE, which is an antibiotic to treat presumed Lyme disease, cb (03/14). It is recommended that you follow-up with your primary care physician within 1-2 weeks of discharge to ensure you are still doing well, and to obtain your Lyme panel results that are still pending. It was a pleasure taking care of you! Please call if you have any questions or problems. You can reach a [facility] hospitalist on duty at [facility] 24 hours a day by calling [phone]. Take care of yourself. Aria Edwards, [facility] Pending Studies at Discharge: Yes Studies:: Lyme Western blot Stand-Alone Forms: My [facility] Medications and DC Order Prescriptions: New doxycycline hyclate 100 mg capsule 100 mg PO BID Qty: 28 RF: 0 Continued ciprofloxacin HCl [Cipro] 500 mg tablet 500 mg PO Q12 RF: 0 omeprazole 20 mg capsule,delayed release(DR/EC) 20 mg PO DAILY RF: 0 alfuzosin 10 mg Tablet Extended Release 24 Hr 10 mg PO HS RF: 0 Discharge Orders: Discharge Order (Routine); Ordered 03/14/20 Ordered By: Aria Edwards Admission Data Admit Date/Time: 03/13/20 21:04 Attending Provider: Aria Edwards Admit Provider: Luis Antonio Guillory Primary Care Provider: Chano Boudreaux Other Providers: Luis Antonio Guillory ; Jean Conley
[2020-03-14] MEDS ORDERED: ALFUZOSIN HCL 10 MG TAB PO SCH (21:00)
[2020-03-18 01:37] LABS: 18KDIGG Band NON-REACTIVE; 23KDIGG Band NON-REACTIVE; 23KDIGM Band REACTIVE; 28KDIGG Band NON-REACTIVE; 30KDIGG Band NON-REACTIVE; 39KDIGG Band NON-REACTIVE; 39KDIGM Band NON-REACTIVE; 41KDIGG Band REACTIVE; 41KDIGM Band NON-REACTIVE; 45KDIGG Band NON-REACTIVE; 58KDIGG Band NON-REACTIVE; 66KDIGG Band NON-REACTIVE; 93KDIGG Band NON-REACTIVE; Lyme Antibodies, WB IgG NEGATIVE (NEGATIVE); Lyme Antibodies, WB IgM NEGATIVE (NEGATIVE)
== END 2020-03-14 18:02 | disposition home or self-care (01) | DRG 312 ==
LOC: ED 17:45 → 2S 21:04